=== PATIENT | male | born 1965 | race Caucasian/White ===

== ENCOUNTER → 2019-01-21 | Day surgery (SDC) | payer OTHER ==
[~2019-01-21] VITALS: Ht 170.2 cm; Wt 63.8 kg
[~2019-01-21] MED LIST: ALBU8HFA IH; ALBUTEROL SULFATE 2.5 MG/0.5 ML NEB SOLUTION NEB ONE; BENZ-51 PO; BENZOCAINE 20% 50 MCG/SPRAY 57 GM TP ONE; FentaNYL CITRATE-PF 100 MCG/2 ML VIAL ONE; LIDOCAINE 2% 30 ML JELLY TP ONE; LIDOCAINE 4% 50 ML SOLUTION TP ONE; METF-960 PO; MIDAZOLAM HCL 2 MG/2 ML VIAL ONE; MONT10TA21 PO; MethylPREDNISolone SOD SUCC 125 MG/2 ML VIAL IVP ONE; MethylPREDNISolone SOD SUCC 125 MG/2 ML VIAL ONE; OMEP20 PO; OXYGEN THERAPY IH SCH; SODIUM CHLORIDE 0.9% 1,000 ML IV ONE
[2019-01-21 07:35] LABS: GLUCOMETER DEV NAME(LOC) SDS.; GLUCOSE,POINT OF CARE 160 MG/DL (70-110)
== END | disposition home or self-care (01) ==
LOC: SURGERY 06:36
PROVIDERS: ATTEND Internal Medicine Critical Care Medicine
DX: J38.4 Edema of larynx (principal); B37.0 Candidal stomatitis; Z87.891 Personal history of nicotine dependence
CPT/HCPCS: 31623; 31624; 71045; 82962; 87015; 87070; 87101; 87205; 87206; 87220; 88108; 88312; J2250; J2930; J3010; J7030